=== PATIENT | female | born 1955 | race Caucasian/White ===

== ENCOUNTER 2025-01-26 10:56 | Inpatient (IN) | payer MEDICARE, OTHER ==
[~2025-01-26] VITALS: Ht 162.6 cm; Wt 90.7 kg
[2025-01-26] MEDS ORDERED: ACET-73 PO (11:14)
[2025-01-26] MEDS ORDERED: LIDO1ADH82 TOP (11:15)
[2025-01-26] MEDS ORDERED: BACL5TAB PO (11:16)
[2025-01-26] MEDS ORDERED: [UNRECOGNIZED DRUG - OTHER] TOP (11:19)
[2025-01-26] MEDS ORDERED: CLON0.1T PO (11:20)
[2025-01-26] MEDS ORDERED: TRAM50TA2 PO (11:21)
[2025-01-26] MEDS ORDERED: SPIR25TA6 PO (11:21)
[2025-01-26] MEDS ORDERED: CALC500T13 PO (11:22)
[2025-01-26] MEDS ORDERED: ACET-2154 PO (11:22)
[2025-01-26] MEDS ORDERED: ONDA4TAB5 PO (11:24)
[2025-01-26] MEDS ORDERED: DICL100G16 TOP (11:24)
[2025-01-26] MEDS ORDERED: INSU100V39 SUBCUT ×2 (11:27→11:45)
[2025-01-26] MEDS ORDERED: IPRA3AMP22 IH (11:28)
[2025-01-26] MEDS ORDERED: LACT10SO58 PO (11:29)
[2025-01-26] MEDS ORDERED: INSU100V7 SUBCUT (11:29)
[2025-01-26] MEDS ORDERED: FURO-152 PO (11:30)
[2025-01-26] MEDS ORDERED: LIDO30AD10 TOP (11:31)
[2025-01-26] MEDS ORDERED: PREG50CA PO (11:32)
[2025-01-26] MEDS ORDERED: LINA145C PO (11:32)
[2025-01-26] MEDS ORDERED: METH-806 PO (11:33)
[2025-01-26] MEDS ORDERED: MAGN400O6 PO (11:34)
[2025-01-26] MEDS ORDERED: POLY119P2 PO (11:35)
[2025-01-26] MEDS ORDERED: OLAN5TAB70 PO (11:36)
[2025-01-26] MEDS ORDERED: NITR0.4T48 SL (11:36)
[2025-01-26] MEDS ORDERED: PANT40TA2 PO (11:37)
[2025-01-26] MEDS ORDERED: PHEN26CR2 TOP (11:38)
[2025-01-26] MEDS ORDERED: CARB15DR EACHEYE (11:39)
[2025-01-26] MEDS ORDERED: SENN-261 PO (11:39)
[2025-01-26] MEDS ORDERED: SIME80TA15 PO (11:40)
[2025-01-26] MEDS ORDERED: GLIM2TAB31 PO (11:41)
[2025-01-26] MEDS ORDERED: NA P133E RC (11:41)
[2025-01-26] MEDS ORDERED: GLUC1KIT IM (11:42)
[2025-01-26] MEDS ORDERED: DEXT38GE12 PO (11:44)
[2025-01-26] MEDS ORDERED: CRAN1TAB3 PO (11:45)
[2025-01-26] MEDS ORDERED: DEXT50VI3 IV (11:47)
[2025-01-26] MEDS ORDERED: BISA10SU95 RC (11:48)
[2025-01-26] MEDS ORDERED: DAPA10TA PO (11:48)
[2025-01-26] MEDS ORDERED: FAMO40TA7 PO (11:48)
[2025-01-26] MEDS ORDERED: BUTA1CAP46 PO (11:49)
[2025-01-26] MEDS ORDERED: OMEG500C3 PO (11:50)
[2025-01-26 11:54] LABS: PLATELET COUNT (AUTO) 179 K/uL (179-408); RED BLOOD CELL COUNT(AUTO) 5.17 MIL/uL (3.63-4.92); RED CELL DISTRIBUTION WIDTH 15.5 % (12.3-17.7); WHITE BLOOD COUNT (AUTO) 10.3 K/uL (3.8-11.8)
[2025-01-26 12:27] LABS: ASPARTATE AMINOTRANSFERASE 13 U/L (15-37); CREATININE 1.1 mg/dL (0.6-1.3); SODIUM SERUM 140 mmol/L (136-145); TOTAL PROTEIN, SERUM 8.1 g/dL (6.4-8.2); UREA NITROGEN, BLOOD 32 mg/dL (7-18)
[2025-01-26 13:23] LABS: *BILIRUBIN,URIN NEGATIVE (NEGATIVE); *CLARITY,URINE CLEAR (CLEAR); *COLOR,URINE YELLOW (YELLOW); *KETONES,URINE 1+ (NEGATIVE); *PROTEIN,URINE NEGATIVE (NEGATIVE); *UROBILINOGEN,URINE 0.2 E.U./dl (NORMAL); LEUKOCYTE ESTERASE ,URINE TRACE (NEGATIVE); NITRITE, URINE POSITIVE (NEGATIVE)
[2025-01-26 13:35] LABS: *BLOOD, URINE TRACE (NEGATIVE); UGLUCOSE 3+ (NEGATIVE)
[2025-01-26 13:51] LABS: SQUAMOUS EPITHELIAL CELL,UR MODERATE /HPF (NONE SEEN)
[2025-01-26 14:26] VITALS: BP 132/94
[2025-01-26 15:00] VITALS: BP 147/102; TEMP 98.2; O2SAT 95
[2025-01-26] MEDS ORDERED: ONDANSETRON 4 MG/2 ML VIAL IV PRN (15:15)
[2025-01-26] MEDS ORDERED: MORPHINE SULFATE 2 MG/1 ML DISP.SYRIN IVP PRN (15:30)
[2025-01-26] MEDS: LACTULOSE 20 G/30 ML LIQUID UDC PO SCH (16:41)
[2025-01-26] MEDS: IV NS 1000 ML 1,000 ML IV SCH (16:42)
[2025-01-26] MEDS: DOCUSATE SODIUM 100 MG CAPSULE PO SCH (16:42)
[2025-01-26] MEDS: HEPARIN SODIUM,PORCINE 5,000 UNITS/ML VIAL SQ SCH (16:45)
[2025-01-26] MEDS ORDERED: IPRA3AMP23 IH (17:00)
[2025-01-26] MEDS ORDERED: INSU100V7 SQ (17:03)
[2025-01-26] MEDS ORDERED: CRAN450T9 PO (17:31)
[2025-01-26] MEDS: CEFEPIME HCL 2 GM in IV DEXTROSE 5% 100 ML IV SCH (18:00)
[2025-01-26 19:10] VITALS: BP 124/78; TEMP 98.5; O2SAT 95
[2025-01-26] MEDS ORDERED: METHOCARBAMOL 500 MG TABLET PO PRN (19:15)
[2025-01-26] MEDS ORDERED: BISACODYL 10 MG SUPP.RECT RC PRN (19:15)
[2025-01-26] MEDS ORDERED: DEXTROSE 50% 50 ML DISP.SYRIN IV PRN (19:30)
[2025-01-26] MEDS ORDERED: BACLOFEN 10 MG TABLET PO PRN (20:00)
[2025-01-26] MEDS ORDERED: INSULIN GLARGINE,HUM 300 UNITS/3 ML CARTRIDGE SQ ONE (20:33)
[2025-01-26] MEDS: BLOOD SUGAR DIAGNOSTIC 1 EACH STRIP VI SCH (20:46)
[2025-01-26] MEDS: INSULIN REGULAR, HUMAN 300 UNITS/3 ML VIAL SQ PRN (20:48)
[2025-01-26] MEDS: INSULIN GLARGINE,HUM 300 UNITS/3 ML CARTRIDGE SQ SCH (20:51)
[2025-01-26] MEDS: OLANZAPINE 5 MG TABLET PO SCH (20:54)
[2025-01-26] MEDS ORDERED: FAMOTIDINE 20 MG TABLET PO SCH (21:00)
[2025-01-26] MEDS: ACETAMINOPHEN 325 MG TABLET PO PRN (21:41)
[2025-01-26] MEDS ORDERED: CEFEPIME HCL 2 GM in IV DEXTROSE 5% 100 ML IV SCH (22:00)
[2025-01-27 06:20] VITALS: BP 126/76; TEMP 97.6; O2SAT 98
[2025-01-27 06:44] LABS: PLATELET COUNT (AUTO) 148 K/uL (179-408); RED BLOOD CELL COUNT(AUTO) 5.07 MIL/uL (3.63-4.92); RED CELL DISTRIBUTION WIDTH 15.3 % (12.3-17.7); WHITE BLOOD COUNT (AUTO) 9.2 K/uL (3.8-11.8)
[2025-01-27 07:01] LABS: ASPARTATE AMINOTRANSFERASE 15.0 U/L (15-37); CREATININE 0.9 mg/dL (0.6-1.3); SODIUM SERUM 143.0 mmol/L (136-145); TOTAL PROTEIN, SERUM 7.2 g/dL (6.4-8.2); UREA NITROGEN, BLOOD 25.0 mg/dL (7-18)
[2025-01-27] MEDS: SPIRONOLACTONE 25 MG TABLET PO SCH (08:06)
[2025-01-27] MEDS: PANTOPRAZOLE SODIUM 40 MG TABLET.DR PO SCH (08:06)
[2025-01-27] MEDS: FUROSEMIDE 20 MG TABLET PO SCH (08:07)
[2025-01-27] MEDS: OMEGA-3 FATTY ACIDS/FISH OIL CAPSULE PO SCH (08:07)
[2025-01-27] MEDS: PREGABALIN 50 MG CAPSULE PO SCH (08:07)
[2025-01-27] MEDS: MIRALAX 17 GM POWD.PACK PO SCH (08:07)
[2025-01-27] MEDS: INSULIN REGULAR, HUMAN 1000 UNIT/10 ML VIAL SQ PRN (08:10)
[2025-01-27] MEDS: DAPAGLIFLOZIN PROPANEDIOL 10 MG TABLET PO SCH (09:00)
[2025-01-27 11:01] VITALS: BP 138/72; TEMP 98.4; O2SAT 95
[2025-01-27 15:13] VITALS: BP 125/73; TEMP 98.6; O2SAT 94
[2025-01-27 19:00] VITALS: BP 121/79; TEMP 98.1; O2SAT 94
[2025-01-28 04:00] VITALS: BP 121/73; TEMP 97.6; O2SAT 94
[2025-01-28 05:16] LABS: *CREATININE,URINE 53.6 mg/dL (30-125); *SODIUM RNDM,URINE 65.0 mmol/L (40-220); *URINE TOTAL PROTEIN RANDOM 16.9 mg/dL (<150/24HR)
[2025-01-28] MEDS: HEPARIN SODIUM,PORCINE 5,000 UNITS/ML VIAL SQ SCH (08:33)
[2025-01-28 11:32] VITALS: BP 118/82; TEMP 98.3; O2SAT 94
[2025-01-28 11:39] VITALS: BP 115/61; TEMP 98.4; O2SAT 93
[2025-01-28 15:27] VITALS: BP 110/67; TEMP 97.7; O2SAT 97
[2025-01-28] MEDS ORDERED: LACTULOSE 20 G/30 ML LIQUID UDC PO PRN (16:00)
[2025-01-28 19:20] VITALS: BP 109/73; TEMP 98.6; O2SAT 95
[2025-01-29 04:37] VITALS: BP 106/64; TEMP 97.5; O2SAT 97
[2025-01-29 11:54] VITALS: BP 130/79; TEMP 97.8; O2SAT 97
[2025-01-29 13:18] VITALS: BP 125/75; TEMP 97.5; O2SAT 97
== END 2025-01-29 16:20 | DRG 389 ==
LOC: ER 10:56 → MEDSURG3 14:21
PROVIDERS: ADMIT Internal Medicine; ATTEND Internal Medicine
DX: K56.41 Fecal impaction (principal); I69.354 Hemiplegia and hemiparesis following cerebral infarction affecting left non-dominant side; N13.6 Pyonephrosis; N17.9 Acute kidney failure, unspecified; M89.8X9 Other specified disorders of bone, unspecified site; E78.5 Hyperlipidemia, unspecified; F31.9 Bipolar disorder, unspecified; I11.0 Hypertensive heart disease with heart failure; I50.9 Heart failure, unspecified; I25.2 Old myocardial infarction; G40.909 Epilepsy, unspecified, not intractable, without status epilepticus; E66.9 Obesity, unspecified; Z68.34 Body mass index [BMI] 34.0-34.9, adult; J44.9 Chronic obstructive pulmonary disease, unspecified; Z88.0 Allergy status to penicillin; Z91.010 Allergy to peanuts; Z79.4 Long term (current) use of insulin; Z79.84 Long term (current) use of oral hypoglycemic drugs; Z79.899 Other long term (current) drug therapy; M24.575 Contracture, left foot; M24.574 Contracture, right foot; D64.9 Anemia, unspecified; E11.9 Type 2 diabetes mellitus without complications; I25.10 Atherosclerotic heart disease of native coronary artery without angina pectoris; F41.9 Anxiety disorder, unspecified; L90.5 Scar conditions and fibrosis of skin
CPT/HCPCS: 36415; 71045; 76770; 83605; 83690; 84100; 84300; 84484; 85025; 85730; 87040; 87077; 87086; A4606; A4663; A6213; C1758; G0378; J0692; J1644; J1815; J7040